=== PATIENT | female | born 1990 ===

== ENCOUNTER 2021-01-09 14:07 | Outpatient (RCR) | payer OTHER ==
[~2021-01-09 14:07] MED LIST: FLEXERIL 1010 MG/TAB PO; MOTRIN 800800 MG/TAB PO; NEXIUM 40MG40 MG; NORCO 325 MG-51 TAB PO; PRENATAL MVI PO
== END 2021-03-01 | disposition home or self-care (01) ==
LOC: WSOH
DX: S93.401A Sprain of unspecified ligament of right ankle, initial encounter (principal); F41.8 Other specified anxiety disorders; Z98.890 Other specified postprocedural states; Z79.899 Other long term (current) drug therapy; Y99.0 Civilian activity done for income or pay
CPT/HCPCS: 24774; L1810

== ENCOUNTER 2021-07-13 10:29 | Emergency (ER) | payer BC, MEDICAID ==
[~2021-07-13] VITALS: Ht 165.1 cm; Wt 96.4 kg
[2021-07-13 10:42] VITALS: TEMP 98.6
[2021-07-13 11:02] LABS: COLLECTION METHOD CLEAN CATCH
[2021-07-13 11:05] LABS: BASO % 0.7 % (0.0-2.0); EOS # 0.3 K/mm3 (0.0-0.7); EOS % 4.3 % (0.0-4.0); GRAN # 3.2 K/mm3 (1.4-6.5); GRAN % 53.2 % (42.2-75.2); HEMATOCRIT 40.9 % (37.0-47.0); HEMOGLOBIN 14.1 g/dl (12.5-16.0); LYMPH # 1.8 K/mm3 (1.2-3.4); LYMPH % 29.9 % (20.0-51.0); MEAN CELL VOLUME 83 fl (80.0-100.0); MEAN CORPUSCULAR HEMOGLOBIN 29 pg (27-31); MEAN CORPUSCULAR HGB CONC 35 g/dl (33.0-37.0); MEAN PLATELET VOLUME 9.9 fl (7.4-10.4); MONO # 0.7 K/mm3 (0.1-0.6); MONO % 11.6 % (1.7-9.3); PLATELET COUNT 330 K/mm3 (130-400); RED BLOOD COUNT 4.93 M/mm3 (4.10-5.30); REDCELL DISTRIBUTION WIDTH-CV 14.5 % (11.5-14.5)
[2021-07-13] MEDS ORDERED: PEPCID 20MG TAB20 MG PO (11:08)
[2021-07-13 11:10] LABS: MUCOUS Present (NOT PRESENT); PH 7 (5-8); SQUAMOUS EPITHELIAL None Seen /hpf (0-10); URINE APPEARANCE Clear (CLEAR/HAZY); URINE BACTERIA Rare /hpf (NONE SEEN); URINE BILIRUBIN Negative (NEGATIVE); URINE BLOOD 3+ (NEGATIVE); URINE COLOR Yellow (YELLOW); URINE GLUCOSE Negative (NEGATIVE); URINE KETONE Trace (NEGATIVE); URINE LEUKOCYTE ESTERASE Negative (NEGATIVE); URINE NITRATE Negative (NEGATIVE); URINE PROTEIN(semi-quant) Negative (NEGATIVE); URINE RBC 20-50 /hpf (0-2); URINE UROBILINOGEN Negative (NEGATIVE)
[2021-07-13 12:01] VITALS: BP 157/77; PULSE 82
== END 2021-07-13 12:01 | disposition home or self-care (01) ==
LOC: COL.ER 10:29
PROVIDERS: Physician Assistant
DX: O20.8 Other hemorrhage in early pregnancy (principal); Z3A.01 Less than 8 weeks gestation of pregnancy